=== PATIENT | male | born 1995 | race Two or more races ===

== ENCOUNTER 2020-12-31 15:03 | Emergency (ER) | payer MEDICAID ==
[~2020-12-31] VITALS: Ht 180.3 cm; Wt 78.0 kg
[2020-12-31] MEDS ORDERED: CEPH500T MT (17:26)
[2020-12-31] MEDS ORDERED: T3 PO (17:26)
[2020-12-31] MEDS ORDERED: ACETAMINOPHEN 325MG TABLET PO ONE (17:30)
[2020-12-31 17:41] VITALS: BP 136/74
== END 2020-12-31 17:43 | disposition home or self-care (01) ==
LOC: ER 15:03
DX: L97.818 Non-pressure chronic ulcer of other part of right lower leg with other specified severity (principal); Z98.890 Other specified postprocedural states
CPT/HCPCS: 99283

== ENCOUNTER 2021-01-15 13:32 | Emergency (ER) | payer MEDICAID ==
[~2021-01-15] VITALS: Ht 180.3 cm; Wt 73.0 kg
[~2021-01-15 13:32] MED LIST: CEPH500T MT; T3 PO
[2021-01-15 13:34] VITALS: BP 121/81
[2021-01-15] MEDS ORDERED: [UNRECOGNIZED DRUG - CODE] PO (13:41)
== END 2021-01-15 21:53 | disposition left against medical advice (07) ==
LOC: ER 13:32
DX: Z53.21 Procedure and treatment not carried out due to patient leaving prior to being seen by health care provider (principal)